=== PATIENT | male | born 1960 | race Caucasian/White ===

== ENCOUNTER 2021-01-19 20:01 | Inpatient (IN) | payer OTHER, SELFPAY ==
[2021-01-19] MEDS ORDERED: hydrALAZINE 20 MG/ML VIAL SLOW IVP PRN (23:24)
[2021-01-19] MEDS ORDERED: Ondansetron ODT 4 MG TAB PO PRN (23:24)
[2021-01-19] MEDS ORDERED: Dextrose 5% in Water 1,000 ML IV PRN (23:24)
[2021-01-19] MEDS ORDERED: Cyclobenzaprine 10 MG TAB PO PRN (23:24)
[2021-01-19] MEDS ORDERED: Ondansetron PF 4 MG/2 ML Vial IVP PRN (23:24)
[2021-01-19] MEDS ORDERED: traMADol HCl 50 MG TAB PO PRN ×2 (23:24)
[2021-01-19] MEDS ORDERED: Dextrose 50% Abboject 50 ML SYRINGE SLOW IVP PRN (23:24)
[2021-01-19] MEDS ORDERED: Morphine 2 MG/ML VIAL SLOW IVP PRN (23:24)
[2021-01-20] MEDS: Acetaminophen 325 MG TAB PO SCH ×5 (01:14→23:15)
[2021-01-20] MEDS: Ibuprofen 200 MG TAB PO SCH ×4 (01:14→23:15)
[2021-01-20] MEDS: Sodium Chloride 0.9% 1,000 ML IV SCH ×2 (01:14→09:47)
[2021-01-20] MEDS: Oxazepam 10 MG CAP PO SCH ×4 (01:14→23:15)
[2021-01-20 03:04] VITALS: BMI 33.5
[2021-01-20 04:39] LABS: Bacteria/HPF None Seen HPF (None Seen); Bilirubin Negative (Negative); Blood, Urine Negative (Negative); Clarity Clear (Clear); Glucose, Urine (Dipstick) Normal (Negative); Ketone, Urine Negative (Negative); Leukocyte Negative Leu/uL (Negative); Nitrite Negative (Negative); Protein, Urine (Dipstick) Negative (Neg-Trace); RBC/HPF 0-3 HPF (0-3); Specific Gravity, Urine 1.011 (1.002-1.036); Squamous Epithelial None Seen HPF (0-3); Urobilinogen Normal mg/dL (Less than 2); WBC/HPF 0-3 HPF (0-3); pH, Urine 6.5 (5.0-9.0)
[2021-01-20 04:41] LABS: Urine Culture Reflex No No
[2021-01-20 06:29] LABS: #Basophils 0.1 thou/uL (0.0-0.2); #Eosinphils 0.2 thou/uL (0.0-0.7); #Lymphocytes 1.8 thou/uL (1.20-3.40); #Monocytes 0.7 thou/uL (0.11-0.59); %Basophils 0.7 % (0.0-1.0); %Eosinophils 2.2 % (0.0-10.0); %Lymphocytes 23.7 % (21.0-51.0); %Monocytes 8.6 % (0.0-10.0); %Neutrophils 64.8 % (42.0-75.0); Hemoglobin 11.7 g/dL (14.0-18.0); Mean Corpuscular HGB CONC 35.9 g/dL (32.0-36.0); Mean Corpuscular Hemoglobin 32.5 pg (27.0-31.0); Mean Corpuscular Volume 90.4 fL (78.0-98.0); Mean Platelet Volume 7.6 fL (7.4-10.4); Platelet Count 188 thou/uL (130-400); RBC Distribution Width 11.3 % (11.5-14.5); Red Blood Cell (RBC) Count 3.61 mill/uL (4.70-6.10); White Blood Cell (WBC) Count 7.7 thou/uL (4.8-10.8)
[2021-01-20 06:54] LABS: Anion Gap 14 mmol/L (10-20); BUN (Urea Nitrogen) 13 mg/dL (8.4-25.7); Calc. Creatinine Clearance 149 mL/min (70-130); Calcium 8.9 mg/dL (7.8-10.44); Carbon Dioxide 23 mmol/L (22-29); Chloride 99 mmol/L (98-107); Glucose 149 mg/dL (70-105); Magnesium 1.8 mg/dL (1.6-2.6); Phosphorus 3.8 mg/dL (2.3-4.7); Potassium 4.1 mmol/L (3.5-5.1); Sodium 132 mmol/L (136-145)
[2021-01-20] MEDS: Famotidine 20 MG TAB PO SCH ×2 (08:29→20:11)
[2021-01-20] MEDS: Folic Acid 1 MG TAB PO SCH (08:32)
[2021-01-20] MEDS: Thiamine 100 MG TAB PO SCH (08:32)
[2021-01-20] MEDS ORDERED: CEFAZOLIN 2 GM in Premix Bag 1 BAG IVPB SCH (09:45)
[2021-01-20] MEDS ORDERED: Promethazine HCl 25 MG/ML VIAL IM PRN ×2 (12:08→15:56)
[2021-01-20] MEDS ORDERED: Ondansetron HCl/PF 4 MG/2 ML Vial IVP PRN ×3 (12:08→17:00)
[2021-01-20] MEDS ORDERED: Promethazine HCl 25 MG/ML VIAL IVPB PRN ×2 (12:08→15:56)
[2021-01-20] MEDS ORDERED: Fentanyl 100 MCG/2 ML VIAL ONE ×3 (12:12→16:16)
[2021-01-20] MEDS ORDERED: Dexmedetomidine 200 MCG/2 ML VIAL ONE (14:22)
[2021-01-20] MEDS ORDERED: PROPOFOL 200 MG/20 ML VIAL ONE (14:38)
[2021-01-20] MEDS ORDERED: Lidocaine 1% PF 5 ML VIAL ONE (14:38)
[2021-01-20] MEDS ORDERED: Non-Formulary Medication 1 EACH PO PRN (16:51)
[2021-01-20] MEDS ORDERED: Promethazine HCl 25 MG/ML VIAL IM/IV PRN (17:00)
[2021-01-20] MEDS ORDERED: Meperidine HCl/PF 25 MG/ML VIAL IV PRN (17:00)
[2021-01-20] MEDS: CEFAZOLIN 2 GM in Premix Bag 1 BAG IVPB SCH (20:11)
[2021-01-21] MEDS: CEFAZOLIN 2 GM in Premix Bag 1 BAG IVPB SCH (05:00)
[2021-01-21] MEDS: Acetaminophen 325 MG TAB PO SCH ×2 (05:30→12:49)
[2021-01-21 05:32] LABS: #Lymphocytes 0.9 thou/uL (1.20-3.40); #Monocytes 0.6 thou/uL (0.11-0.59); #Neutrophils 7.2 thou/uL (1.40-6.50); %Eosinophils 0.1 % (0.0-10.0); %Lymphocytes 10.3 % (21.0-51.0); %Monocytes 6.8 % (0.0-10.0); %Neutrophils 82.8 % (42.0-75.0); Hemoglobin 11.3 g/dL (14.0-18.0); Mean Corpuscular HGB CONC 35.2 g/dL (32.0-36.0); Mean Corpuscular Hemoglobin 32.2 pg (27.0-31.0); Mean Corpuscular Volume 91.5 fL (78.0-98.0); Mean Platelet Volume 7.4 fL (7.4-10.4); Platelet Count 179 thou/uL (130-400); RBC Distribution Width 11.1 % (11.5-14.5); White Blood Cell (WBC) Count 8.7 thou/uL (4.8-10.8)
[2021-01-21 05:42] LABS: Anion Gap 12 mmol/L (10-20); BUN (Urea Nitrogen) 10 mg/dL (8.4-25.7); CK (CPK) 611 U/L (30-200); Calc. Creatinine Clearance 165 mL/min (70-130); Calcium 8.6 mg/dL (7.8-10.44); Carbon Dioxide 23 mmol/L (22-29); Chloride 100 mmol/L (98-107); Glucose 189 mg/dL (70-105); Phosphorus 2.8 mg/dL (2.3-4.7); Potassium 4.7 mmol/L (3.5-5.1); Sodium 130 mmol/L (136-145)
[2021-01-21] MEDS ORDERED: metFORMIN 500 MG TAB PO SCH (08:00)
[2021-01-21] MEDS: Sodium Chloride 0.9% 1,000 ML IV SCH (08:16)
[2021-01-21] MEDS: Ibuprofen 200 MG TAB PO SCH (08:47)
[2021-01-21] MEDS: Thiamine 100 MG TAB PO SCH (08:47)
[2021-01-21] MEDS: Oxazepam 10 MG CAP PO SCH (08:48)
[2021-01-21] MEDS: Folic Acid 1 MG TAB PO SCH (08:48)
[2021-01-21] MEDS: Famotidine 20 MG TAB PO SCH (08:48)
[2021-01-21] MEDS ORDERED: Polyethylene Glycol 3350 17 GM Packet PO SCH (09:00)
[2021-01-21] MEDS ORDERED: Amlodipine 10 MG TAB PO SCH (09:00)
[2021-01-21] MEDS ORDERED: Losartan 25 MG TAB PO SCH (09:00)
[2021-01-21] MEDS ORDERED: Senokot S 8.6-50 MG TAB PO SCH (09:00)
[2021-01-21 16:40] VITALS: BP 172/93; TEMP 98.5
[2021-01-21] MEDS ORDERED: Atorvastatin Calcium 10 MG TAB PO SCH (21:00)
== END 2021-01-21 16:59 | disposition home or self-care (01) | DRG 493 ==
LOC: ERS 20:01 → SURG A 21:23
PROVIDERS: ADMIT Surgery; ATTEND Surgery
PROC: 0QSH04Z Reposition Left Tibia with Internal Fixation Device, Open Approach (ICD-10-PCS; principal; 2021-01-20)
DX: S82.142A Displaced bicondylar fracture of left tibia, initial encounter for closed fracture (principal); S32.10XA Unspecified fracture of sacrum, initial encounter for closed fracture; S32.512A Fracture of superior rim of left pubis, initial encounter for closed fracture; S32.592A Other specified fracture of left pubis, initial encounter for closed fracture; E78.5 Hyperlipidemia, unspecified; I10 Essential (primary) hypertension; W01.0XXA Fall on same level from slipping, tripping and stumbling without subsequent striking against object, initial encounter; Z79.899 Other long term (current) drug therapy; Z98.890 Other specified postprocedural states
CPT/HCPCS: 36415; 76000; 80048; 81001; 82550; 83735; 84100; 85025; 99284; C1713; J0690; J2270; J2704; J3010